=== PATIENT | male | born 1970 | race Caucasian/White ===

== ENCOUNTER 2017-04-24 12:08 | Emergency (ER) | payer OTHER ==
[2017-04-24 13:04] LABS: RED BLOOD COUNT 5.35 M/UL (4.20-5.50); WHITE BLOOD COUNT 8.6 K/UL (4.5-11.0)
[2017-04-24 13:29] LABS: BUN/CREATININE RATIO 17 (0-10)
== END 2017-04-24 17:00 | disposition home or self-care (01) ==
LOC: EDBD 12:08 → ER1 12:08
PROVIDERS: Family Medicine
DX: R55 Syncope and collapse (principal); R03.0 Elevated blood-pressure reading, without diagnosis of hypertension; R23.1 Pallor; K21.9 Gastro-esophageal reflux disease without esophagitis; Z79.899 Other long term (current) drug therapy
CPT/HCPCS: 36415; 70450; 71010; 80053; 82550; 82553; 82962; 83874; 84484; 85025; 93005; 96360; 99284